=== PATIENT | female | born 1965 | race American Indian/Alaskan Native ===

== ENCOUNTER 2019-02-01 11:51 | Emergency (ER) | payer SELFPAY ==
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
[2019-02-01 12:25] VITALS: BP 137/86
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
== END 2019-02-01 15:07 | disposition home or self-care (01) ==
LOC: ED 11:51
DX: S29.012A Strain of muscle and tendon of back wall of thorax, initial encounter (principal); V49.59XA Passenger injured in collision with other motor vehicles in traffic accident, initial encounter; Y93.89 Activity, other specified; Y92.488 Other paved roadways as the place of occurrence of the external cause; Y99.8 Other external cause status
CPT/HCPCS: 72072; 99283